=== PATIENT | female | born 1955 | race Caucasian/White ===

== ENCOUNTER 2017-08-08 08:44 | Emergency (ER) | payer SELFPAY, OTHER ==
[2017-08-08 09:06] LABS: Bilirubin Small (Negative); Blood, Urine Large (Negative); Clarity Turbid (Clear); Glucose, Urine (Dipstick) Negative (Negative); Leukocyte Moderate (Negative); Nitrite Negative (Negative); Protein, Urine (Dipstick) > or equal to 300 mg/dL (Neg-Trace); Specific Gravity, Urine 1.025 (1.005-1.030)
[2017-08-08 09:16] LABS: RBC/HPF GREATER THAN 50-TNTC HPF (0-3); Squamous Epithelial 0-3 HPF (0-3)
[2017-08-08 09:17] LABS: Bacteria/HPF 1+ HPF (None Seen)
== END 2017-08-08 10:02 | disposition home or self-care (01) ==
LOC: BURERS 08:44
DX: N39.0 Urinary tract infection, site not specified (principal); I25.10 Atherosclerotic heart disease of native coronary artery without angina pectoris; Z79.899 Other long term (current) drug therapy
CPT/HCPCS: 81003; 81015; 87077; 87086; 87186; 99283

== ENCOUNTER 2021-03-16 08:58 | Emergency (ER) | payer MEDICARE ==
[2021-03-16] MEDS ORDERED: predniSONE 20 MG TAB ONE (09:46)
== END 2021-03-16 09:52 | disposition home or self-care (01) ==
LOC: BURERS 08:58
DX: G51.0 Bell's palsy (principal); I25.10 Atherosclerotic heart disease of native coronary artery without angina pectoris
CPT/HCPCS: 99283; J7512